=== PATIENT | male | born 1990 | race Caucasian/White ===

== ENCOUNTER 2016-11-12 11:05 | Emergency (ER) | payer OTHER ==
[~2016-11-12] VITALS: Ht 170.2 cm; Wt 74.8 kg
[2016-11-12] MEDS ORDERED: diphenhydrAMINE 50 MG/1 ML VIAL IM ONE (11:30)
[2016-11-12] MEDS ORDERED: LORAZEPAM 2 MG/1 ML VIAL IV ONE (11:30)
[2016-11-12] MEDS ORDERED: HALOPERIDOL LACTATE 5 MG/1 ML VIAL IM ONE (11:30)
--- NOTE | 2016-11-12 11:36 | NUR ---
PT IS IN ROOM #2A. DR GRANADOS EVALUATED THE PT.
[2016-11-12 11:38] LABS: *AMPHETAMINE, URINE NEGATIVE (NEGATIVE); *BARBITURATE, URINE NEGATIVE (NEGATIVE); *CANNABINOID, URINE NEGATIVE (NEGATIVE); *COCCAINE, URINE NEGATIVE (NEGATIVE); *OPIATE, URINE NEGATIVE (NEGATIVE); *PHENCYCLIDINE SCREEN,URINE POSITIVE (NEGATIVE)
[2016-11-12 11:46] LABS: BASOPHILS # (AUTO) 0.1 K/uL (0.0-8.0); BASOPHILS % (AUTO) 0.5 % (0.0-2.0); EOSINOPHILS # (AUTO) 0.1 K/uL (0.0-0.7); EOSINOPHILS % (AUTO) 0.9 % (0.0-7.0); HEMATOCRIT 38.3 % (40-50); HEMOGLOBIN 12.9 G/DL (14.0-18.0); LYMPHOCYTES # (AUTO) 1.8 K/UL (0.8-4.8); LYMPHOCYTES % (AUTO) 17.2 % (20.5-51.5); MEAN CORPUSCULAR HGB CONC 34 g/dL (32.0-37.0); MEAN CORPUSCULAR VOLUME 89.2 FL (82.0-92.0); MONOCYTES % (AUTO) 9.5 % (0.0-11.0); NEUTROPHILS # (AUTO) 7.4 K/UL (1.8-8.9); NEUTROPHILS % (AUTO) 71.9 % (38.5-71.5); PLATELET COUNT (AUTO) 208 K/UL (150-450); WHITE BLOOD COUNT (AUTO) 10.4 K/UL (4.0-11.2)
[2016-11-12 12:00] LABS: ALANINE AMINOTRANSFERASE 39 U/L (16-63); ALKALINE PHOSPHATASE 65 U/L (50-136); ASPARTATE AMINOTRANSFERASE 77 U/L (15-37); BILIRUBIN,DIRECT 0.2 mg/dL (0.0-0.2); BILIRUBIN,TOTAL 0.7 mg/dL (0.2-1.0); CARBON DIOXIDE 24 mmol/L (21-32); CHLORIDE 100 mmol/L (98-107); CREATININE 1.2 mg/dL (0.6-1.3); GLUCOSE 88 mg/dL (74-106); TOTAL PROTEIN, SERUM 6.6 g/dL (6.4-8.2); UREA NITROGEN, BLOOD 25 mg/dL (7-18)
[2016-11-12 12:05] LABS: POTASSIUM 2.6 mmol/L (3.5-5.1)
[2016-11-12 12:08] LABS: ETHANOL < 3 MG/DL (0-0)
[2016-11-12 12:16] LABS: ACETAMINOPHEN < 2.0 ug/mL (10-30)
[2016-11-12] MEDS ORDERED: IV NORMAL SALINE 1000 ML BAG IV ONE (12:30)
[2016-11-12] MEDS ORDERED: POTASSIUM CHLORIDE 20 MEQ TAB.PRT.SR PO ONE ×2 (12:30→23:30)
[2016-11-12] MEDS: POTASSIUM CHLORIDE 50 ML IV SCH ×3 (12:43→15:27)
[2016-11-12 14:43] LABS: *BILIRUBIN,URIN NEGATIVE (NEGATIVE); *BLOOD, URINE NEGATIVE (NEGATIVE); *CLARITY,URINE CLEAR (CLEAR); *COLOR,URINE YELLOW (YELLOW); *KETONES,URINE NEGATIVE (NEGATIVE); *PROTEIN,URINE NEGATIVE (NEGATIVE); *UROBILINOGEN,URINE 0.2 E.U./dl (NORMAL); LEUKOCYTE ESTERASE ,URINE NEGATIVE (NEGATIVE); NITRITE, URINE NEGATIVE (NEGATIVE); PH,URINE 6.5 (5.0-8.0); UGLUCOSE NEGATIVE (NEGATIVE)
[2016-11-12 14:44] LABS: BACTERIA,URINE NONE SEEN /HPF (NONE SEEN); RBC,URINE 0-3 /HPF (0-3); SQUAMOUS EPITHELIAL CELL,UR FEW /HPF (NONE SEEN); WBC,URINE 0-3 /HPF (0-3)
--- NOTE | 2016-11-12 18:20 | NUR ---
pt ate dinner. pt is resting in the bed now. no s/s of acute distress.
--- NOTE | 2016-11-12 18:55 | NUR ---
report given to retail shift supervisor rn.
--- NOTE | 2016-11-12 19:10 | NUR ---
Patient is asleep, respirations even and unlabored, no acute distress noted. Will continue to monitor.
[2016-11-12] MEDS ORDERED: POTASSIUM CHLORIDE 20 MEQ TAB.PRT.SR ONE (23:50)
[2016-11-13 06:02] VITALS: BP 123/74
== END 2016-11-13 06:02 | disposition home or self-care (01) ==
LOC: ER 11:05 → EDBD 11:05 → ER 11-13 06:02
DX: F16.129 Hallucinogen abuse with intoxication, unspecified (principal); E87.6 Hypokalemia; Z59.0 Homelessness
CPT/HCPCS: 36415; 80307; 83735; 85025; 93005; A4663; G0480; G0480-TC; J1200; J1630; J2060; J3480; J7030

== ENCOUNTER 2019-07-22 07:35 | Emergency (ER) | payer SELFPAY ==
--- NOTE | 2019-07-22 07:37 | NUR ---
PT NOT IN WAITING ROOM WHEN CALLED FOR TRIAGE.
== END 2019-07-22 07:37 | disposition home or self-care (01) ==
LOC: ER 07:35
DX: Z53.21 Procedure and treatment not carried out due to patient leaving prior to being seen by health care provider (principal)